=== PATIENT | male | born 1980 | race Caucasian/White ===

== ENCOUNTER → 2019-10-19 | Outpatient (CLI) | payer OTHER ==
--- NOTE | 2019-10-19 17:34 | KCIC ---
Left elbow 4 views obtained because of left elbow pain. FINDINGS: AP, bilateral oblique and lateral views of the left elbow show fixation pins, fixation screw, and a cerclage wire reducing and fixating an olecranon process fracture that has radiographically healed. The cerclage wire is broken. The osseous alignment is anatomic. No aggressive osseous lesions are seen. Articular surfaces are smooth. The bone mineralization is normal. The soft tissues are within normal limits as well. No evidence of a joint effusion. IMPRESSION: Broken cerclage wire from previous ORIF of olecranon fracture that has since healed. Alignment is anatomic and no acute osseous abnormalities otherwise noted. Electronically signed by: Esther Guerrero MD (10/19/2019 5:31 PM) [id number]
== END | disposition home or self-care (01) ==
LOC: KCIC 15:38
PROVIDERS: ATTEND Family Medicine
DX: M25.522 Pain in left elbow (principal)
CPT/HCPCS: 73080